=== PATIENT | female | born 1940 | race Caucasian/White ===

== ENCOUNTER 2017-09-04 22:13 | Emergency (ER) | payer MEDICARE, OTHER ==
[2017-09-04 22:33] VITALS: BP 146/91
[2017-09-04 23:40] LABS: CHLORIDE,CL 102 mmol/L (98-107); SODIUM,NA 143 mmol/L (136-145)
[2017-09-04] MEDS ORDERED: Take Home: Sulfamethoxazole/Trimethoprim 800-160 MG Tab, 2 Tab Pack PO ONE (23:59)
--- NOTE | 2017-09-05 01:43 | EDM.PDOC ---
ED HPI GENERAL MEDICAL PROBLEM - General Chief Complaint: Neurological Problem Stated Complaint: paranoid Time Seen by Provider: 09/04/17 22:37 Source of Information: Reports: Patient, Family History Limitations: Reports: No Limitations - History of Present Illness INITIAL COMMENTS - FREE TEXT/NARRATIVE: Pt. family states that pt. has been experiencing some increased paranoia and hallucinations that started around Abelardo time. Pt. was upset that she locked herself out of her house today and was confused as to where her was. These problems have been going on for approx. 1 month. Pt. has a history of a meningioma that was surgically repaired and they state that the pt. had similar symptoms when she had the meningioma and request evaluation for this. Pt. denies any headache, difficulty with speech, ambulation, and denies problems with memory. Pt. has not taken her evening meds, including ativan, today. Location: Reports: Generalized - Related Data Allergies Allergy/AdvReac Type Severity Reaction Status Date / Time amlodipine besylate Allergy Wheezing Verified 06/23/17 23:27 [From Norvasc] atenolol Allergy Shortness Verified 06/23/17 23:27 of Breath atorvastatin calcium Allergy Cannot Verified 06/23/17 23:27 [From Lipitor] Remember ibuprofen Allergy Shortness Verified 06/23/17 23:27 of Breath losartan potassium Allergy Shortness Verified 06/23/17 23:27 [From Cozaar] of Breath nadolol [From Corgard] Allergy Shortness Verified 06/23/17 23:27 of Breath sulindac [From Clinoril] Allergy Cannot Verified 06/23/17 23:27 Remember tree nut Allergy Swelling Verified 06/23/17 23:27 aloe vera [From Flexall] AdvReac Arrhythmias Verified 06/23/17 23:27 amitriptyline AdvReac Insomnia Verified 06/23/17 23:27 aspirin AdvReac Ringing in Verified 06/23/17 23:27 the Ears benazepril HCl AdvReac Cough Verified 06/23/17 23:27 [From Lotensin] celecoxib [From Celebrex] AdvReac Nausea and Verified 06/23/17 23:27 Vomiting cephalexin monohydrate AdvReac Anxiety Verified 06/23/17 23:27 [From Keflex] chlordiazepoxide HCl AdvReac Muscle Verified 06/23/17 23:27 [From Librium] Aches clarithromycin [From Biaxin] AdvReac Diarrhea Verified 06/23/17 23:27 codeine AdvReac Nausea and Verified 06/23/17 23:27 Vomiting divalproex sodium AdvReac Lethargy Verified 06/23/17 23:27 [From Depakote] doxycycline AdvReac Lightheaded Verified 06/23/17 23:27 ness erythromycin base AdvReac Abdominal Verified 06/23/17 23:27 [Erythromycin Base] Pain estrogens, conjugated, AdvReac Headache Verified 06/23/17 23:27 synthetic A [From Cenestin] ezetimibe [From Zetia] AdvReac Fatigue Verified 06/23/17 23:27 famotidine [From Pepcid] AdvReac Abdominal Verified 06/23/17 23:27 Pain gemfibrozil [From Lopid] AdvReac Nausea Verified 06/23/17 23:27 hydralazine [Hydralazine] AdvReac Sweating Verified 06/23/17 23:27 lansoprazole [From Prevacid] AdvReac Abdominal Verified 06/23/17 23:27 Pain levofloxacin [From Levaquin] AdvReac Diarrhea Verified 06/23/17 23:27 menthol [From Flexall] AdvReac Arrhythmias Verified 06/23/17 23:27 meperidine HCl [From Demerol] AdvReac Nausea and Verified 06/23/17 23:27 Vomiting minocycline HCl AdvReac Lightheaded Verified 06/23/17 23:27 [From Minocin] ness nizatidine [From Axid] AdvReac Arrhythmias Verified 06/23/17 23:27 omeprazole [From Prilosec] AdvReac Headache Verified 06/23/17 23:27 pravastatin sodium AdvReac Fatigue Verified 06/23/17 23:27 [From Pravachol] propoxyphene HCl AdvReac Anxiety Verified 06/23/17 23:27 [From Darvon] rizatriptan benzoate AdvReac Difficulty Verified 06/23/17 23:27 [From Maxalt] Swallowing rofecoxib [From Vioxx] AdvReac Edema Verified 06/23/17 23:27 salsalate [From Disalcid] AdvReac Arrhythmias Verified 06/23/17 23:27 sertraline HCl [From Zoloft] AdvReac Nausea and Verified 06/23/17 23:27 Vomiting simvastatin AdvReac Muscle Verified 06/23/17 23:27 Aches Skin Cleanser Combination AdvReac Lightheaded Verified 06/23/17 23:27 No.4 ness [From Minocin] Tetracyclines AdvReac Lightheaded Verified 06/23/17 23:27 ness thimerosal AdvReac Edema Verified 06/23/17 23:27 thiothixene [From Navane] AdvReac Anxiety Verified 06/23/17 23:27 tramadol HCl [From Ultram] AdvReac Nausea and Verified 06/23/17 23:27 Vomiting triamcinolone acetonide AdvReac Swelling Verified 06/23/17 23:27 [From Kenalog] vitamin E (d-alpha AdvReac Arrhythmias Verified 06/23/17 23:27 tocopherol) [From Flexall] Home Meds: Home Meds ALPRAZolam [Xanax] 1 mg PO DAILY 12/05/14 [History] Acetaminophen [Tylenol Arthritis Pain] 650 mg PO TID 12/05/14 [History] Calcium Carbonate [Tums] 500 mg PO QID PRN 12/05/14 [History] Calcium Citrate/Vitamin D3 [Citracal-Vit D 200 mg-250 Tab] 1 each PO DAILY 12/05 [History] Cholecalciferol (Vitamin D3) [Vitamin D3] 3 cap PO DAILY 12/05/14 [History] Diltiazem IR [Cardizem] 30 mg PO TID 12/05/14 [History] Docusate Sodium [Colace] 100 mg PO BID 12/05/14 [History] Fish Oil/[place]-3 Fatty Acids [Fish Oil] 1 each PO DAILY 12/05/14 [History] Flaxseed Oil [Flaxseed] 1,000 mg PO DAILY 12/05/14 [History] Hydrochlorothiazide 12.5 mg PO BID 12/05/14 [History] Metoprolol Tartrate [Lopressor] 100 mg PO BID 12/05/14 [History] Multivits,Ca,Minerals/Iron/FA [Thera-M] 1 each PO DAILY 12/05/14 [History] PARoxetine HCl [Paxil] 20 mg PO BID 12/05/14 [History] Warfarin [Coumadin] 5 mg PO ASDIRECTED 12/05/14 [History] Magnesium Oxide 500 mg PO DAILY 06/24/17 [History] Potassium Chloride 10 meq PO DAILY 06/24/17 [History] Sennosides/Docusate Sodium [Senna-Docusate Sodium] 1 each PO BID 06/24/17 [ History] Oxymetazoline HCl [Nasal Vaiden] 30 ml NS ASDIRECTED 09/04/17 [History] Past Medical History Cardiovascular History: Reports: Afib, Pacemaker Gastrointestinal History: Reports: GERD Neurological History: Reports: Other (See Below) Other Neuro History: meningioma, surgically removed Psychiatric History: Reports: Anxiety - Past Surgical History Musculoskeletal Surgical History: Reports: Hip Replacement, Shoulder Replacement , Shoulder Surgery Social & Family History - Tobacco Use Smoking Status *Q: Former Smoker Used Tobacco, but Quit: Yes Month Tobacco Last Used: 45 years - Alcohol Use Days Per Week of Alcohol Use: 0 - Recreational Drug Use Recreational Drug Use: No ED ROS GENERAL - Review of Systems Review Of Systems: See Below Constitutional: Reports: No Symptoms HEENT: Reports: No Symptoms Respiratory: Reports: No Symptoms Cardiovascular: Reports: No Symptoms Endocrine: Reports: No Symptoms GI/Abdominal: Reports: No Symptoms : Reports: No Symptoms Musculoskeletal: Reports: No Symptoms Skin: Reports: No Symptoms Neurological: Reports: Confusion, Pre-Existing Deficit (meningioma), Other. Denies: Dizziness, Headache, Trouble Speaking, Difficulty Walking Psychiatric: Reports: Agitation, Anxiety, Other (paranoia, according to family. Denied any concerns to ER staff.) Hematologic/Lymphatic: Reports: No Symptoms Immunologic: Reports: No Symptoms - Physical Exam Exam: See Below Exam Limited By: No Limitations General Appearance: Alert, WD/WN, No Apparent Distress Eye Exam: Bilateral Eye: EOMI, Normal Fundi, Normal Inspection, PERRL Ears: Normal External Exam, Normal Canal, Hearing Grossly Normal, Normal TMs Nose: Normal Inspection, Normal Mucosa, No Blood Throat/Mouth: Normal Inspection, Normal Lips, Normal Teeth, Normal Gums, Normal Oropharynx, Normal Voice, No Airway Compromise Head Exam: Atraumatic, Normocephalic Neck: Normal Inspection, Supple, Non-Tender, Full Range of Motion Respiratory/Chest: No Respiratory Distress, Lungs Clear, Normal Breath Sounds, No Accessory Muscle Use, Chest Non-Tender Cardiovascular: Normal Peripheral Pulses, Regular Rate, Rhythm, No Edema, No Gallop, No JVD, No Murmur, No Rub GI/Abdominal: Normal Bowel Sounds, Soft, Non-Tender, No Organomegaly, No Distention, No Abnormal Bruit, No Mass (Female) Exam: Deferred Rectal (Female) Exam: Deferred Neuro Exam (Abbreviated): Alert, Oriented, CN II-XII Intact, Normal Cognition, Normal Gait, Normal Reflexes, No Motor/Sensory Deficits DTR: 2+: Patella (R), Patella (L) Back Exam: Normal Inspection, Full Range of Motion, NT Extremities: Normal Inspection, Normal Range of Motion, Non-Tender, No Pedal Edema, Normal Capillary Refill Psychiatric: Normal Affect, Normal Mood, Anxious Skin Exam: Warm, Dry, Intact, Normal Color, No Rash EKG INTERPRETATION Rhythm: A-Fib Course - Vital Signs Last Recorded V/S: Last Vital Signs Temp 37.2 C 09/04/17 22:19 Pulse 102 H 09/04/17 22:19 Resp 18 09/04/17 22:19 BP 146/91 H 09/04/17 22:19 Pulse Ox 95 09/04/17 22:19 - Orders/Labs/Meds Orders: Active Orders 24 hr Category Date Time Status EKG Documentation Completion [RC] STAT Care 09/04/17 22:38 Ordered Chest 2V [CR] Stat Exams 09/04/17 22:44 Taken Head wo Cont [CT] Stat Exams 09/04/17 22:39 Taken Labs: Laboratory Tests 09/04/17 09/04/17 09/04/17 Range/Units 23:10 23:10 23:10 WBC 9.5 (4.0-10.0) x10^3/uL RBC 4.39 (4.00-5.50) x10^6/uL Hgb 13.8 D (12.0-16.0) g/dL Hct 43.0 (33.0-47.0) % MCV 97.9 H (78.0-93.0) fL MCH 31.4 (26.0-32.0) pg MCHC 32.1 (32.0-36.0) g/dL RDW Coeff of Jose L 12.7 (10.0-15.0) % Plt Count 222 (130-400) x10^3/uL Neut % (Auto) 70.3 (50.0-80.0) % Lymph % (Auto) 19.6 L (25.0-50.0) % [place] % (Auto) 8.1 (2.0-11.0) % Eos % (Auto) 1.5 (0.0-4.0) % Baso % (Auto) 0.5 (0.2-1.2) % PT 24.0 H (9.8-11.8) SEC INR 2.3 (2.0-3.5) Sodium 143 (136-145) mmol/L Potassium 3.5 (3.5-5.1) mmol/L Chloride 102 (98-107) mmol/L Carbon Dioxide 31 (21-32) mmol/L BUN 19 H (7-18) mg/dL Creatinine 1.0 (0.55-1.02) mg/dL Est Cr Clr Drug Dosing TNP Estimated GFR (MDRD) 54 Glucose 121 H (74-106) mg/dL Calcium 9.4 (8.5-10.1) mg/dL Corrected Calcium 9.48 (8.5-10.1) mg/dL Total Bilirubin 0.4 (0.2-1.0) mg/dL AST 23 (15-37) U/L ALT 29 (14-59) U/L Alkaline Phosphatase 71 (46-116) U/L Troponin I < 0.017 (<=0.056) ng/mL C-Reactive Protein < 0.2 (<=0.9) mg/dL Total Protein 7.6 (6.4-8.2) g/dL Albumin 3.9 (3.4-5.0) g/dL Globulin 3.7 Albumin/Globulin Ratio 1.05 Urine Color (YELLOW) Urine Appearance (CLEAR) Urine pH (5.0-8.0) Ur Specific [place] Urine Protein (NEGATIVE) mg/dL Urine Glucose (UA) (NEGATIVE) mg/dL Urine Ketones (NEGATIVE) mg/dL Urine Occult Blood (NEGATIVE) Urine Nitrite (NEGATIVE) Urine Bilirubin (NEGATIVE) Urine Urobilinogen (0.2) EU/dL Ur Leukocyte Esterase (NEGATIVE) Urine RBC (NOT SEEN) /HPF Urine WBC (NOT SEEN) /HPF Ur Squamous Epith Cells (NEGATIVE) /HPF Urine Bacteria (NEGATIVE) /HPF Urine Mucus (NEGATIVE) /LPF 09/04/17 Range/Units 23:14 WBC (4.0-10.0) x10^3/uL RBC (4.00-5.50) x10^6/uL Hgb (12.0-16.0) g/dL Hct (33.0-47.0) % MCV (78.0-93.0) fL MCH (26.0-32.0) pg MCHC (32.0-36.0) g/dL RDW Coeff of Jose L (10.0-15.0) % Plt Count (130-400) x10^3/uL Neut % (Auto) (50.0-80.0) % Lymph % (Auto) (25.0-50.0) % [place] % (Auto) (2.0-11.0) % Eos % (Auto) (0.0-4.0) % Baso % (Auto) (0.2-1.2) % PT (9.8-11.8) SEC INR (2.0-3.5) Sodium (136-145) mmol/L Potassium (3.5-5.1) mmol/L Chloride (98-107) mmol/L Carbon Dioxide (21-32) mmol/L BUN (7-18) mg/dL Creatinine (0.55-1.02) mg/dL Est Cr Clr Drug Dosing Estimated GFR (MDRD) Glucose (74-106) mg/dL Calcium (8.5-10.1) mg/dL Corrected Calcium (8.5-10.1) mg/dL Total Bilirubin (0.2-1.0) mg/dL AST (15-37) U/L ALT (14-59) U/L Alkaline Phosphatase (46-116) U/L Troponin I (<=0.056) ng/mL C-Reactive Protein (<=0.9) mg/dL Total Protein (6.4-8.2) g/dL Albumin (3.4-5.0) g/dL Globulin Albumin/Globulin Ratio Urine Color Light yellow (YELLOW) Urine Appearance Clear (CLEAR) Urine pH 5.5 (5.0-8.0) Ur Specific [place] <=1.005 Urine Protein Negative (NEGATIVE) mg/dL Urine Glucose (UA) Negative (NEGATIVE) mg/dL Urine Ketones Negative (NEGATIVE) mg/dL Urine Occult Blood Small H (NEGATIVE) Urine Nitrite Negative (NEGATIVE) Urine Bilirubin Negative (NEGATIVE) Urine Urobilinogen 0.2 (0.2) EU/dL Ur Leukocyte Esterase Small H (NEGATIVE) Urine RBC 0-5 (NOT SEEN) /HPF Urine WBC 0-5 (NOT SEEN) /HPF Ur Squamous Epith Cells Rare (NEGATIVE) /HPF Urine Bacteria Rare (NEGATIVE) /HPF Urine Mucus Not seen (NEGATIVE) /LPF Meds: Medications Discontinued Medications Generic Name Dose Route Start Last Admin Trade Name Freq PRN Reason Stop Dose Admin Trimethoprim/Sulfamethoxazole 1 packet 09/04/17 23:59 09/05/17 00:05 Take Home: Sulfameth/Trimet 800-160mg, 2 Pack PO 09/05/17 00:00 1 packet ONETIME ONE Administration - Radiology Interpretation Free Text/Narrative:: CT brain negative for acute pathology. 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 Chest x-ray negative Departure - Departure Time of Disposition: 01:15 Disposition: Home, Self-Care 01 Condition: Good Clinical Impression: Delirium, Sinusitis, UTI (urinary tract infection) - Discharge Information Instructions: Sinusitis, Adult, [id number], Urinary Tract Infection, Adult Referrals: Marie Pedersen DO [Primary Care Provider] - Forms: ED Department Discharge Additional Instructions: Take bactrim DS twice daily for 10 days Follow-up with Marie Pedersen if not gradually improving Continue with other medications as needed - My Orders Last 24 Hours: My Active Orders 09/04/17 22:38 EKG Documentation Completion [RC] STAT 09/04/17 22:39 Head wo Cont [CT] Stat 09/04/17 22:44 Chest 2V [CR] Stat - Assessment/Plan Last 24 Hours: My Active Orders 09/04/17 22:38 EKG Documentation Completion [RC] STAT 09/04/17 22:39 Head wo Cont [CT] Stat 09/04/17 22:44 Chest 2V [CR] Stat Assessment:: Acute delirium vs. new onset dementia Plan: Discussed findings with family. Informed that the sinusitis, UTI or both could be causing some acute delirium and subsequent mental status and mood changes. They requested a psych consult tonight and were informed that this would be impossible at this hour, as the pt. is not currently suicidal or homicidal. They were informed that the findings did not point to a life-threatening cause for the pts. change in mentation and advised she follow-up in the clinic as an outpatient.
== END 2017-09-05 00:12 | disposition home or self-care (01) ==
LOC: VM.ED 22:13
DX: J32.1 Chronic frontal sinusitis (principal); J32.2 Chronic ethmoidal sinusitis; N39.0 Urinary tract infection, site not specified; R41.0 Disorientation, unspecified; Z88.5 Allergy status to narcotic agent; Z88.1 Allergy status to other antibiotic agents; Z88.8 Allergy status to other drugs, medicaments and biological substances; Z79.899 Other long term (current) drug therapy; Z79.01 Long term (current) use of anticoagulants; Z87.891 Personal history of nicotine dependence
CPT/HCPCS: 36415; 70450; 71046; 80053; 81001; 84484; 85025; 85610; 86140; 93005; 99285; A9270; 99284-GF

== ENCOUNTER 2020-09-16 18:17 | Emergency (ER) | payer MEDICARE, OTHER ==
--- NOTE | 2020-09-16 18:39 | EDM.PDOC ---
ED HPI GENERAL MEDICAL PROBLEM - General Chief Complaint: General Stated Complaint: fever Time Seen by Provider: 09/16/20 18:17 Source of Information: Reports: Patient History Limitations: Reports: No Limitations - History of Present Illness INITIAL COMMENTS - FREE TEXT/NARRATIVE: Patient is in the emergency department with complaints of fever and chills. Patient states that she recently had a knee replacement done on 121 and has been doing fairly well. Patient states after lunch this afternoon she felt chilled and decided to lay down. When she woke up she took her temperature is 99.1. The highest temperature that she has gotten has been 99 8. She did take some Tylenol to reduce the fever. She states that right prior to arrival to the emergency department she broke out with a sweat. She states that she is no longer chilled. Patient denies any body aches that she did have a headache when she felt extremely warm. Patient also denies any increase in pain, swelling above what she has been experiencing, warmth, drainage, chest pain, shortness of breath, abdominal pain, or peripheral edema. Patient states that she has had good range of motion and CMS in the right lower extremity. She was able to complete all of her physical therapy exercises today without any difficulty. She has no other concerns or complaints and states she feels fairly well while being in the emergency department but she was concerned during the low-grade fever and chills that she was experiencing. Denies having any recent COVID-19 test completed. She states that she was at the hospital and has been doing physical therapy without any limitations. She is not aware of any direct contact to covid-19. That that she does have a longstanding history of bacterial sinusitis and has noticed in the course of the last 4 days that she has had increased sinus pressure tenderness and nasal secretions. Onset: Sudden Location: Reports: Lower Extremity, Right Quality: Reports: Other Severity: Mild Improves with: Reports: None Worsens with: Reports: None Associated Symptoms: Reports: Fever/Chills Treatments COMMODITY MANAGER: Reports: Acetaminophen - Related Data Allergies Allergy/AdvReac Type Severity Reaction Status Date / Time amlodipine besylate Allergy Wheezing Verified 09/16/20 18:48 [From Norvasc] atenolol Allergy Shortness Verified 09/16/20 18:48 of Breath atorvastatin calcium Allergy Cannot Verified 09/16/20 18:48 [From Lipitor] Remember ibuprofen Allergy Shortness Verified 09/16/20 18:48 of Breath losartan potassium Allergy Shortness Verified 09/16/20 18:48 [From Cozaar] of Breath nadolol [From Corgard] Allergy Shortness Verified 09/16/20 18:48 of Breath sulindac [From Clinoril] Allergy Cannot Verified 09/16/20 18:48 Remember tree nut Allergy Swelling Verified 09/16/20 18:48 aloe vera [From Flexall] AdvReac Arrhythmias Verified 09/16/20 18:48 amitriptyline AdvReac Insomnia Verified 09/16/20 18:48 aspirin AdvReac Ringing in Verified 09/16/20 18:48 the Ears benazepril HCl AdvReac Cough Verified 09/16/20 18:48 [From Lotensin] celecoxib [From Celebrex] AdvReac Nausea and Verified 09/16/20 18:48 Vomiting cephalexin monohydrate AdvReac Anxiety Verified 09/16/20 18:48 [From Keflex] chlordiazepoxide HCl AdvReac Muscle Verified 09/16/20 18:48 [From Librium] Aches clarithromycin [From Biaxin] AdvReac Diarrhea Verified 09/16/20 18:48 codeine AdvReac Nausea and Verified 09/16/20 18:48 Vomiting divalproex sodium AdvReac Lethargy Verified 09/16/20 18:48 [From Depakote] doxycycline AdvReac Lightheaded Verified 09/16/20 18:48 ness erythromycin base AdvReac Abdominal Verified 09/16/20 18:48 [Erythromycin Base] Pain estrogens, conjugated, AdvReac Headache Verified 09/16/20 18:48 synthetic A [From Cenestin] ezetimibe [From Zetia] AdvReac Fatigue Verified 09/16/20 18:48 famotidine [From Pepcid] AdvReac Abdominal Verified 09/16/20 18:48 Pain gemfibrozil [From Lopid] AdvReac Nausea Verified 09/16/20 18:48 hydralazine [Hydralazine] AdvReac Sweating Verified 09/16/20 18:48 lansoprazole [From Prevacid] AdvReac Abdominal Verified 09/16/20 18:48 Pain levofloxacin [From Levaquin] AdvReac Diarrhea Verified 09/16/20 18:48 menthol [From Flexall] AdvReac Arrhythmias Verified 09/16/20 18:48 meperidine HCl [From Demerol] AdvReac Nausea and Verified 09/16/20 18:48 Vomiting minocycline HCl AdvReac Lightheaded Verified 09/16/20 18:48 [From Minocin] ness nizatidine [From Axid] AdvReac Arrhythmias Verified 09/16/20 18:48 omeprazole [From Prilosec] AdvReac Headache Verified 09/16/20 18:48 pravastatin sodium AdvReac Fatigue Verified 09/16/20 18:48 [From Pravachol] propoxyphene HCl AdvReac Anxiety Verified 09/16/20 18:48 [From Darvon] rizatriptan benzoate AdvReac Difficulty Verified 09/16/20 18:48 [From Maxalt] Swallowing rofecoxib [From Vioxx] AdvReac Edema Verified 09/16/20 18:48 salsalate [From Disalcid] AdvReac Arrhythmias Verified 09/16/20 18:48 sertraline HCl [From Zoloft] AdvReac Nausea and Verified 09/16/20 18:48 Vomiting simvastatin AdvReac Muscle Verified 09/16/20 18:48 Aches Skin Cleanser Combination AdvReac Lightheaded Verified 09/16/20 18:48 No.4 ness [From Minocin] Tetracyclines AdvReac Lightheaded Verified 09/16/20 18:48 ness thimerosal AdvReac Edema Verified 09/16/20 18:48 thiothixene [From Navane] AdvReac Anxiety Verified 09/16/20 18:48 tramadol HCl [From Ultram] AdvReac Nausea and Verified 09/16/20 18:48 Vomiting triamcinolone acetonide AdvReac Swelling Verified 09/16/20 18:48 [From Kenalog] vitamin E (d-alpha AdvReac Arrhythmias Verified 09/16/20 18:48 tocopherol) [From Flexall] Home Meds: Home Meds ALPRAZolam [Xanax] 0.5 mg PO BID 12/05/14 [History] Acetaminophen [Tylenol Arthritis Pain] 650 mg PO Q4H PRN 12/05/14 [History] Calcium Carbonate [Tums] 500 mg PO QID PRN 12/05/14 [History] Diltiazem IR [Cardizem] 30 mg PO TID 12/05/14 [History] Metoprolol Tartrate [Lopressor] 75 mg PO BID 12/05/14 [History] Multivit,Calc,Mins/Iron/Folic [Thera-M] 1 each PO DAILY 12/05/14 [History] PARoxetine HCl [Paxil] 20 mg PO BID 12/05/14 [History] Warfarin [Coumadin] 5 mg PO ASDIRECTED 12/05/14 [History] hydroCHLOROthiazide [Hydrochlorothiazide] 12.5 mg PO BID 12/05/14 [History] Magnesium Oxide 500 mg PO DAILY 06/24/17 [History] Potassium Chloride 10 meq PO BID 06/24/17 [History] Sennosides/Docusate Sodium [Senna-Docusate Sodium] 1 each PO BID 06/24/17 [History] Amoxicillin 500 mg PO ASDIRECTED 09/16/20 [History] Amoxicillin/Clavulanate K [Augmentin 875-125 MG] 1 tab PO BID 9 Days #18 tablet 09/16/20 [Rx] Cholecalciferol (Vitamin D3) [Vitamin D3] 100 mcg PO DAILY 09/16/20 [History] Fluocinonide [Lidex 0.05% Top Soln] 1 applic TOP BID PRN 09/16/20 [History] L.acidoph,Paracasei, B.lactis [Probiotic] 1 each PO DAILY 09/16/20 [History] Propylene Glycol/PEG 400/Pf [Systane Hydration Pf 0.4-0.3%] 2 drop EYERT Q6H PRN 09/16/20 [History] QUEtiapine [SEROquel] 12.5 mg PO BEDTIME 09/16/20 [History] QUEtiapine [SEROquel] 50 mg PO BEDTIME 09/16/20 [History] oxyCODONE 10 mg PO Q4H PRN 09/16/20 [History] polyethylene glycoL 3350 [MiraLAX] 3 packet PO DAILY PRN 09/16/20 [History] traMADol [Ultram] 50 mg PO Q6H 09/16/20 [History] Past Medical History Cardiovascular History: Reports: Afib, Pacemaker Gastrointestinal History: Reports: GERD Neurological History: Reports: Other (See Below) Other Neuro History: meningioma, surgically removed Psychiatric History: Reports: Anxiety - Past Surgical History Musculoskeletal Surgical History: Reports: Hip Replacement, Shoulder Replacement, Shoulder Surgery ED ROS GENERAL - Review of Systems Review Of Systems: Comprehensive ROS is negative, except as noted in HPI. Constitutional: Reports: Fever (99.1), Chills HEENT: Reports: Rhinitis, Sinus Problem (chronic sinusitis with frequent infecti ons) Respiratory: Reports: No Symptoms Cardiovascular: Reports: No Symptoms Endocrine: Reports: No Symptoms GI/Abdominal: Reports: No Symptoms : Reports: No Symptoms Musculoskeletal: Reports: No Symptoms Skin: Reports: No Symptoms Neurological: Reports: No Symptoms Psychiatric: Reports: No Symptoms Hematologic/Lymphatic: Reports: No Symptoms Immunologic: Reports: No Symptoms ED EXAM, GENERAL - Physical Exam Exam: See Below Exam Limited By: No Limitations General Appearance: Alert, WD/WN, No Apparent Distress Eye Exam: Bilateral Eye: EOMI, PERRL Ears: Normal External Exam, Normal Canal, Hearing Grossly Normal Ear Exam: Bilateral Ear: Auricle Normal, Canal Normal, TM normal Nose: Nasal Tenderness, Clear Rhinorrhea Throat/Mouth: Normal Inspection, Normal Lips Head: Atraumatic, Normocephalic Neck: Normal Inspection, Supple, Non-Tender Respiratory/Chest: No Respiratory Distress, Lungs Clear, Normal Breath Sounds, No Accessory Muscle Use, Chest Non-Tender Cardiovascular: Normal Peripheral Pulses, Regular Rate, Rhythm, No Edema GI/Abdominal: Normal Bowel Sounds, Soft, Non-Tender Back Exam: Normal Inspection, Full Range of Motion Extremities: Normal Inspection, Normal Range of Motion, Non-Tender, Normal Capillary Refill, Other (right knee- healing healthy appear wound. Approximate edges, no bleeding, redness, no increase in warmth or pus formation. ROM, CMS intact) Neurological: Alert, Oriented, CN II-XII Intact, Normal Cognition Psychiatric: Normal Affect, Normal Mood Skin Exam: Warm, Dry, Intact, Normal Color Course - Vital Signs Last Recorded V/S: Last Vital Signs Temp 36.6 C 09/16/20 18:25 Pulse 71 09/16/20 18:25 Resp 16 09/16/20 18:25 BP 108/66 09/16/20 18:25 Pulse Ox 99 09/16/20 18:25 - Orders/Labs/Meds Orders: Active Orders 24 hr Category Date Time Status ACETAMINOPHEN [CHEM] Stat Lab 09/16/20 19:10 Received Amoxicillin/Clavulanate K [Take Home: Amox/Clavulanate Med 09/16/20 19:49 Once 875-12, 2 Tab Pac] 1 packet PO ONETIME ONE Labs: Laboratory Tests 09/16/20 09/16/20 09/16/20 Range/Units 18:45 19:10 19:10 WBC 7.9 (4.0-10.0) x10^3/uL RBC 3.77 L (4.00-5.50) x10^6/uL Hgb 11.6 L D (12.0-16.0) g/dL Hct 35.8 (33.0-47.0) % MCV 95.0 H (78.0-93.0) fL MCH 30.8 (26.0-32.0) pg MCHC 32.4 (32.0-36.0) g/dL RDW Coeff of Jose L 13.3 (10.0-15.0) % Plt Count 267 (130-400) x10^3/uL Neut % (Auto) 67.5 (50.0-80.0) % Lymph % (Auto) 18.4 L (25.0-50.0) % [place] % (Auto) 8.2 (2.0-11.0) % Eos % (Auto) 4.9 H (0.0-4.0) % Baso % (Auto) 1.0 (0.2-1.2) % PT (9.5-12.3) SEC INR (2.0-3.5) Sodium 141 (136-145) mmol/L Potassium 3.8 (3.5-5.1) mmol/L Chloride 103 (98-107) mmol/L Carbon Dioxide 30 (21-32) mmol/L Anion Gap 11.8 (5-15) mmol/L BUN 17 (7-18) mg/dL Creatinine 0.9 (0.55-1.02) mg/dL Est Cr Clr Drug Dosing 40.55 mL/min Estimated GFR (MDRD) > 60 Glucose 108 H (74-106) mg/dL Lactic Acid (0.4-2.0) mmol/L Calcium 8.8 (8.5-10.1) mg/dL Corrected Calcium 9.44 (8.5-10.1) mg/dL Total Bilirubin 0.4 (0.2-1.0) mg/dL AST 26 (15-37) U/L ALT 37 (14-59) U/L Alkaline Phosphatase 67 (46-116) U/L Total Protein 6.6 (6.4-8.2) g/dL Albumin 3.2 L (3.4-5.0) g/dL Globulin 3.4 Albumin/Globulin Ratio 0.94 SARS CoV-2 RNA Rapid RASHEED Negative (NEGATIVE) 09/16/20 09/16/20 Range/Units 19:10 19:10 WBC (4.0-10.0) x10^3/uL RBC (4.00-5.50) x10^6/uL Hgb (12.0-16.0) g/dL Hct (33.0-47.0) % MCV (78.0-93.0) fL MCH (26.0-32.0) pg MCHC (32.0-36.0) g/dL RDW Coeff of Jose L (10.0-15.0) % Plt Count (130-400) x10^3/uL Neut % (Auto) (50.0-80.0) % Lymph % (Auto) (25.0-50.0) % [place] % (Auto) (2.0-11.0) % Eos % (Auto) (0.0-4.0) % Baso % (Auto) (0.2-1.2) % PT 38.4 H (9.5-12.3) SEC INR 3.8 H (2.0-3.5) Sodium (136-145) mmol/L Potassium (3.5-5.1) mmol/L Chloride (98-107) mmol/L Carbon Dioxide (21-32) mmol/L Anion Gap (5-15) mmol/L BUN (7-18) mg/dL Creatinine (0.55-1.02) mg/dL Est Cr Clr Drug Dosing mL/min Estimated GFR (MDRD) Glucose (74-106) mg/dL Lactic Acid 1.0 (0.4-2.0) mmol/L Calcium (8.5-10.1) mg/dL Corrected Calcium (8.5-10.1) mg/dL Total Bilirubin (0.2-1.0) mg/dL AST (15-37) U/L ALT (14-59) U/L Alkaline Phosphatase (46-116) U/L Total Protein (6.4-8.2) g/dL Albumin (3.4-5.0) g/dL Globulin Albumin/Globulin Ratio SARS CoV-2 RNA Rapid RASHEED (NEGATIVE) Meds: Medications Discontinued Medications Generic Name Dose Route Start Last Admin Trade Name Tulio PRN Reason Stop Dose Admin Amoxicillin/Clavulanate Potassium 1 tab 09/16/20 19:48 Augmentin 875 Mg/125 Mg PO 09/16/20 19:49 ONETIME ONE Departure - Departure Time of Disposition: 19:50 Disposition: Home, Self-Care 01 Condition: Good Clinical Impression: Bacterial sinusitis - Discharge Information *PRESCRIPTION DRUG MONITORING PROGRAM REVIEWED*: Not Applicable *COPY OF PRESCRIPTION DRUG MONITORING REPORT IN PATIENT CARLA: Not Applicable Instructions: Sinusitis, Adult, [id number] Referrals: Marie Pedersen, [Primary Care Provider] - Forms: ED Department Discharge Additional Instructions: 1. rest 2. increase your water intake 3. Take all antibiotics as prescribed even if feeling better 4. Take a probiotic while on antibiotics to help promote healthy GI motility 5. Activity and diet as tolerated 6. Can use Ibuprofen and tylenol for any fever or discomfort 7. Follow up with your PCP or return if symptoms progress or worsen 8. Education provided to you regarding your illness, probiotics, antibiotic prescribed 9. Call with any questions or concerns Sepsis Event Note (ED) - Focused Exam Vital Signs: Vital Signs Temp Pulse Resp BP Pulse Ox 09/16/20 18:25 36.6 C 71 16 108/66 99 - My Orders Last 24 Hours: My Active Orders 09/16/20 19:10 ACETAMINOPHEN [CHEM] Stat 09/16/20 19:49 Amoxicillin/Clavulanate K [Take Home: Amox/Clavulanate 875-12, 2 Tab Pac] 1 p acket PO ONETIME ONE - Assessment/Plan Last 24 Hours: My Active Orders 09/16/20 19:10 ACETAMINOPHEN [CHEM] Stat 09/16/20 19:49 Amoxicillin/Clavulanate K [Take Home: Amox/Clavulanate 875-12, 2 Tab Pac] 1 packet PO ONETIME ONE Assessment:: 1. fever 2. chills 3. Bacterial sinusitis Plan: 1. Labs completed in the ER. Results reviewed with the patient 2. Covid-19 test completed in ER 3. Pain medication given for severe pain and discomfort-Pt denied needing any medication 4. Augmentin for chronic sinusitis issues 5. Augmentin take home pack given 6. Patient and nursing staff was updated regarding the plan of care 7. Education provided the patient regarding activity, diet, rest, [id number] medication modalities, and follow-up care was provided 8. Patient and family are agreeable to the above plan of care 9. All questions and concerns were addressed with the patient and family prior to discharge
[2020-09-16 19:18] VITALS: BP 108/66; PULSE 71
[2020-09-16 19:38] LABS: ANION GAP 11.8 mmol/L (5-15); CHLORIDE,CL 103 mmol/L (98-107); SODIUM,NA 141 mmol/L (136-145)
[2020-09-16] MEDS ORDERED: Amoxicillin/Clavulanate K 875-125 MG Tab PO ONE (19:48)
[2020-09-16] MEDS ORDERED: Take Home: Amoxicillin/Clavulanate K 875-125 MG Tab, 2 Tab Pack PO ONE (19:49)
== END 2020-09-16 20:05 | disposition home or self-care (01) ==
LOC: VM.ED 18:17
DX: J32.9 Chronic sinusitis, unspecified (principal); I48.91 Unspecified atrial fibrillation; B96.89 Other specified bacterial agents as the cause of diseases classified elsewhere; Z88.8 Allergy status to other drugs, medicaments and biological substances; Z91.018 Allergy to other foods; Z88.6 Allergy status to analgesic agent; Z88.1 Allergy status to other antibiotic agents; Z88.5 Allergy status to narcotic agent; Z91.048 Other nonmedicinal substance allergy status; Z79.899 Other long term (current) drug therapy; Z20.822 Contact with and (suspected) exposure to COVID-19
CPT/HCPCS: 36415; 80053; 80143; 83605; 85025; 85610; 99284; A9270-GY; U0002

== ENCOUNTER 2020-10-20 15:04 | Emergency (ER) | payer MEDICARE, OTHER ==
--- NOTE | 2020-10-20 15:52 | EDM.PDOC ---
ED HPI GENERAL MEDICAL PROBLEM - General Chief Complaint: Lower Extremity Injury/Pain Stated Complaint: FALL Time Seen by Provider: 10/20/20 15:05 Source of Information: Reports: Patient, EMS History Limitations: Reports: No Limitations - History of Present Illness INITIAL COMMENTS - FREE TEXT/NARRATIVE: Daiana is an 80 year old female who presents to ER per EMS with complaints of right knee and hip pain. Patient states that the rug in her laundry room was wet so she was retrieving a fan to put on it when she tripped and fell on her right knee. Had total knee replacement 5 weeks ago and has been walking well for about 3 weeks now without a walker. Was having minimal pain prior to fall. Denies hitting head, no loss of consciousness. No pain other than in her RLE. She states she also has had a previous right hip replacement and "feels it jammed everything up" Most of pain is to right medial knee and posterior thigh. Rates pain at a 3/10. GCS 15. Onset: Today, Sudden Duration: Minutes:, Improving Location: Reports: Lower Extremity, Right Quality: Reports: Ache Severity: Mild Improves with: Reports: Rest Worsens with: Reports: Movement Context: Reports: Trauma Associated Symptoms: Reports: No Other Symptoms - Related Data Allergies Allergy/AdvReac Type Severity Reaction Status Date / Time amlodipine besylate Allergy Wheezing Verified 09/16/20 18:48 [From Norvasc] atenolol Allergy Shortness Verified 09/16/20 18:48 of Breath atorvastatin calcium Allergy Cannot Verified 09/16/20 18:48 [From Lipitor] Remember ibuprofen Allergy Shortness Verified 09/16/20 18:48 of Breath losartan potassium Allergy Shortness Verified 09/16/20 18:48 [From Cozaar] of Breath nadolol [From Corgard] Allergy Shortness Verified 09/16/20 18:48 of Breath sulindac [From Clinoril] Allergy Cannot Verified 09/16/20 18:48 Remember tree nut Allergy Swelling Verified 09/16/20 18:48 aloe vera [From Flexall] AdvReac Arrhythmias Verified 09/16/20 18:48 amitriptyline AdvReac Insomnia Verified 09/16/20 18:48 aspirin AdvReac Ringing in Verified 09/16/20 18:48 the Ears benazepril HCl AdvReac Cough Verified 09/16/20 18:48 [From Lotensin] celecoxib [From Celebrex] AdvReac Nausea and Verified 09/16/20 18:48 Vomiting cephalexin monohydrate AdvReac Anxiety Verified 09/16/20 18:48 [From Keflex] chlordiazepoxide HCl AdvReac Muscle Verified 09/16/20 18:48 [From Librium] Aches clarithromycin [From Biaxin] AdvReac Diarrhea Verified 09/16/20 18:48 codeine AdvReac Nausea and Verified 09/16/20 18:48 Vomiting divalproex sodium AdvReac Lethargy Verified 09/16/20 18:48 [From Depakote] doxycycline AdvReac Lightheaded Verified 09/16/20 18:48 ness erythromycin base AdvReac Abdominal Verified 09/16/20 18:48 [Erythromycin Base] Pain estrogens, conjugated, AdvReac Headache Verified 09/16/20 18:48 synthetic A [From Cenestin] ezetimibe [From Zetia] AdvReac Fatigue Verified 09/16/20 18:48 famotidine [From Pepcid] AdvReac Abdominal Verified 09/16/20 18:48 Pain gemfibrozil [From Lopid] AdvReac Nausea Verified 09/16/20 18:48 hydralazine [Hydralazine] AdvReac Sweating Verified 09/16/20 18:48 lansoprazole [From Prevacid] AdvReac Abdominal Verified 09/16/20 18:48 Pain levofloxacin [From Levaquin] AdvReac Diarrhea Verified 09/16/20 18:48 menthol [From Flexall] AdvReac Arrhythmias Verified 09/16/20 18:48 meperidine HCl [From Demerol] AdvReac Nausea and Verified 09/16/20 18:48 Vomiting minocycline HCl AdvReac Lightheaded Verified 09/16/20 18:48 [From Minocin] ness nizatidine [From Axid] AdvReac Arrhythmias Verified 09/16/20 18:48 omeprazole [From Prilosec] AdvReac Headache Verified 09/16/20 18:48 pravastatin sodium AdvReac Fatigue Verified 09/16/20 18:48 [From Pravachol] propoxyphene HCl AdvReac Anxiety Verified 09/16/20 18:48 [From Darvon] rizatriptan benzoate AdvReac Difficulty Verified 09/16/20 18:48 [From Maxalt] Swallowing rofecoxib [From Vioxx] AdvReac Edema Verified 09/16/20 18:48 salsalate [From Disalcid] AdvReac Arrhythmias Verified 09/16/20 18:48 sertraline HCl [From Zoloft] AdvReac Nausea and Verified 09/16/20 18:48 Vomiting simvastatin AdvReac Muscle Verified 09/16/20 18:48 Aches Skin Cleanser Combination AdvReac Lightheaded Verified 09/16/20 18:48 No.4 ness [From Minocin] Tetracyclines AdvReac Lightheaded Verified 09/16/20 18:48 ness thimerosal AdvReac Edema Verified 09/16/20 18:48 thiothixene [From Navane] AdvReac Anxiety Verified 09/16/20 18:48 tramadol HCl [From Ultram] AdvReac Nausea and Verified 09/16/20 18:48 Vomiting triamcinolone acetonide AdvReac Swelling Verified 09/16/20 18:48 [From Kenalog] vitamin E (d-alpha AdvReac Arrhythmias Verified 09/16/20 18:48 tocopherol) [From Flexall] Home Meds: Home Meds ALPRAZolam [Xanax] 0.5 mg PO BID 12/05/14 [History] Acetaminophen [Tylenol Arthritis Pain] 650 mg PO Q4H PRN 12/05/14 [History] Calcium Carbonate [Tums] 500 mg PO QID PRN 12/05/14 [History] Diltiazem IR [Cardizem] 30 mg PO TID 12/05/14 [History] Metoprolol Tartrate [Lopressor] 75 mg PO BID 12/05/14 [History] Multivit,Calc,Mins/Iron/Folic [Thera-M] 1 each PO DAILY 12/05/14 [History] PARoxetine HCl [Paxil] 20 mg PO BID 12/05/14 [History] Warfarin [Coumadin] 5 mg PO ASDIRECTED 12/05/14 [History] hydroCHLOROthiazide [Hydrochlorothiazide] 12.5 mg PO BID 12/05/14 [History] Magnesium Oxide 500 mg PO DAILY 06/24/17 [History] Potassium Chloride 10 meq PO BID 06/24/17 [History] Sennosides/Docusate Sodium [Senna-Docusate Sodium] 1 each PO BID 06/24/17 [History] Amoxicillin 500 mg PO ASDIRECTED 09/16/20 [History] Amoxicillin/Clavulanate K [Augmentin 875-125 MG] 1 tab PO BID 9 Days #18 tablet 09/16/20 [Rx] Cholecalciferol (Vitamin D3) [Vitamin D3] 100 mcg PO DAILY 09/16/20 [History] Fluocinonide [Lidex 0.05% Top Soln] 1 applic TOP BID PRN 09/16/20 [History] L.acidoph,Paracasei, B.lactis [Probiotic] 1 each PO DAILY 09/16/20 [History] Propylene Glycol/PEG 400/Pf [Systane Hydration Pf 0.4-0.3%] 2 drop EYERT Q6H PRN 09/16/20 [History] QUEtiapine [SEROquel] 12.5 mg PO BEDTIME 09/16/20 [History] QUEtiapine [SEROquel] 50 mg PO BEDTIME 09/16/20 [History] oxyCODONE 10 mg PO Q4H PRN 09/16/20 [History] polyethylene glycoL 3350 [MiraLAX] 3 packet PO DAILY PRN 09/16/20 [History] traMADol [Ultram] 50 mg PO Q6H 09/16/20 [History] Past Medical History Cardiovascular History: Reports: Afib, Pacemaker Gastrointestinal History: Reports: GERD Neurological History: Reports: Other (See Below) Other Neuro History: meningioma, surgically removed Psychiatric History: Reports: Anxiety - Past Surgical History Musculoskeletal Surgical History: Reports: Hip Replacement, Shoulder Replacement, Shoulder Surgery Social & Family History - Tobacco Use Tobacco Use Status *Q: Unknown Ever Used Tobacco Review of Systems - Review of Systems Review Of Systems: See Below Constitutional: Reports: No Symptoms Eyes: Reports: No Symptoms Ears: Reports: No Symptoms Nose: Reports: No Symptoms Mouth/Throat: Reports: No Symptoms Respiratory: Denies: Shortness of Breath Cardiovascular: Denies: Chest Pain, Palpitations GI/Abdominal: Denies: Nausea Genitourinary: Reports: No Symptoms Musculoskeletal: Reports: Leg Pain, Joint Pain Skin: Reports: No Symptoms Neurological: Reports: No Symptoms ED EXAM, GENERAL - Physical Exam Exam: See Below Exam Limited By: No Limitations General Appearance: Alert, WD/WN, No Apparent Distress Ears: Normal External Exam, Normal TMs Nose: Normal Inspection, Normal Mucosa, No Blood Throat/Mouth: Normal Inspection, Normal Oropharynx Head: Normocephalic Neck: Normal Inspection, Supple, Non-Tender Respiratory/Chest: No Respiratory Distress, Lungs Clear, Normal Breath Sounds Cardiovascular: Irregularly Irregular GI/Abdominal: Normal Bowel Sounds, Soft, Non-Tender Extremities: Other (pain with palpation to right lateral thigh/hip region and medial right knee. No obvious bruising or deformity. Incision remains well intact. No redness or drainage.) Neurological: Alert, Oriented Skin Exam: Warm, Dry Course - Re-Assessments/Exams Free Text/Narrative Re-Assessment/Exam: 10/20/20 16:42 Xrays show possible pelvic fracture. Patient not having pain, is able to ambulate. Discussed with primary care provider and reviewed old films, diastases of the pubis noted on them as well. Does not have any pain in pelvis at this time. Departure - Departure Time of Disposition: 16:49 Disposition: Home, Self-Care 01 Condition: Good Clinical Impression: Fall, Knee pain - Discharge Information *PRESCRIPTION DRUG MONITORING PROGRAM REVIEWED*: Not Applicable *COPY OF PRESCRIPTION DRUG MONITORING REPORT IN PATIENT CARLA: Not Applicable Instructions: Joint Pain, [id number] Referrals: Marie Pedersen DO [Primary Care Provider] - Forms: ED Department Discharge Additional Instructions: 1. Rest 2. Tylenol as needed for pain 3. Ice frequently to knee 4. Follow up with Dr. Pedersen as needed for any concerns.
--- NOTE | 2020-10-20 16:15 | CR ---
[id number] RAD/RAD Knee Right 1-2V EXAM: RAD Knee Right 1-2V CLINICAL DATA: TRAUMA COMPARISON: NO PREVIOUS SIMILAR EXAM IS AVAILABLE. FINDINGS: No fracture or dislocation is seen The right knee prosthesis appears intact. IMPRESSION: NEGATIVE PLAIN FILM EXAM. Luis Weldon MD 10/20/20 [id number] Thank you for allowing us to participate in the care of your patient.
--- NOTE | 2020-10-20 16:16 | CR ---
[id number] RAD/RAD Pelvis 1V W 2V Right Hip Exam: RAD Pelvis 1V W 2V Right Hip Clinical Data: TRAUMA COMPARISON: NO PREVIOUS SIMILAR EXAM IS AVAILABLE FINDINGS: There is diastases of the pubic symphysis Contrast CT abdomen and pelvis is suggested with arterial and delayed venous imaging IMPRESSION: OPEN BOOK PELVIC FRACTURE STAT CT ABDOMEN PELVIS SUGGESTED WITH IV CONTRAST Luis Weldon MD 10/20/20 [id number] Thank you for allowing us to participate in the care of your patient.
[2020-10-20 21:43] VITALS: BP 134/78; PULSE 86
== END 2020-10-20 17:15 | disposition home or self-care (01) ==
LOC: VM.ED 15:04
DX: M25.561 Pain in right knee (principal); I48.91 Unspecified atrial fibrillation; Z88.8 Allergy status to other drugs, medicaments and biological substances; Z88.6 Allergy status to analgesic agent; Z91.018 Allergy to other foods; Z88.1 Allergy status to other antibiotic agents; Z88.5 Allergy status to narcotic agent; Z91.048 Other nonmedicinal substance allergy status; Z79.899 Other long term (current) drug therapy
CPT/HCPCS: 73560-RT; 99283; 99284-25

== ENCOUNTER 2024-12-13 14:50 | Emergency (ER) | payer MEDICARE, OTHER ==
[2024-12-13 15:15] LABS: BASOPHILS PERCENT AUTO 0.4 % (0.2-1.2); EOSINOPHILS ABSOLUTE AUTO 0.1 x10^3/uL (0.0-0.5); EOSINOPHILS PERCENT AUTO 0.5 % (0.0-4.0); HEMATOCRIT 41.3 % (33.0-47.0); HEMOGLOBIN 13.4 g/dL (12.0-16.0); IMMATURE GRAN ABSOLUTE AUTO 0.02 x10^3/uL (0.00-0.07); LYMPHOCYTES PERCENT AUTO 9.2 % (25.0-50.0); MEAN CORPUSCULAR HEMOGLOBIN 30.4 pg (26.0-32.0); MEAN CORPUSCULAR HGB CONC 32.4 g/dL (32.0-36.0); MEAN CORPUSCULAR VOLUME 93.7 fL (78.0-93.0); MONOCYTES ABSOLUTE AUTO 0.7 x10^3/uL (0.0-0.8); MONOCYTES PERCENT AUTO 6.3 % (2.0-11.0); NEUTROPHILS ABSOLUTE AUTO 9.1 x10^3/uL (1.8-7.7); NEUTROPHILS PERCENT AUTO 83.4 % (50.0-80.0); PLATELET COUNT,PLT 194 x10^3/uL (130-400); RED BLOOD CELL COUNT 4.41 x10^6/uL (4.00-5.50); WHITE BLOOD CELL COUNT,WBC 10.9 x10^3/uL (4.0-10.0)
[2024-12-13 15:38] LABS: A/G RATIO 1.06; ALANINE AMINOTRANSFERASE,ALT 18 U/L (14-59); ALBUMIN 3.7 g/dL (3.4-5.0); ALKALINE PHOSPHATASE 85 U/L (46-116); ASPARTATE AMNIOTRANSFERASE,AST 18 U/L (15-37); BILIRUBIN TOTAL 0.9 mg/dL (0.2-1.0); BLOOD UREA NITROGEN,BUN 15 mg/dL (7-18); CALCIUM 8.5 mg/dL (8.5-10.1); CARBON DIOXIDE,CO2 30 mmol/L (21-32); CHLORIDE,CL 103 mmol/L (98-107); GLUCOSE RANDOM 107 mg/dL (70-99); POTASSIUM,K 4.2 mmol/L (3.5-5.1); PROTEIN TOTAL,TP 7.2 g/dL (6.4-8.2); SODIUM,NA 138 mmol/L (136-145)
[2024-12-13 15:39] LABS: ANION GAP 9.2 mmol/L (5-15); ESTIMATED GFR 55 mL/min (>=60)
[2024-12-13 17:07] VITALS: BP 128/72; PULSE 88
== END 2024-12-13 16:40 | disposition home or self-care (01) ==
LOC: VM.ED 14:50
DX: J06.9 Acute upper respiratory infection, unspecified (principal); B97.89 Other viral agents as the cause of diseases classified elsewhere; K21.9 Gastro-esophageal reflux disease without esophagitis; Z79.899 Other long term (current) drug therapy; Z88.8 Allergy status to other drugs, medicaments and biological substances; Z91.048 Other nonmedicinal substance allergy status; Z91.018 Allergy to other foods; Z88.1 Allergy status to other antibiotic agents; Z88.5 Allergy status to narcotic agent
CPT/HCPCS: 36415; 71045; 80053; 84484; 85025; 87428-QW; 93005; 99285